=== PATIENT | female | born 1980 | race Caucasian/White ===

== ENCOUNTER → 2017-05-18 | Outpatient (CLI) | payer MEDICAID | LOC: FIMAGING 07:41 | PROVIDERS: ATTEND Internal Medicine | DX: K76.0 Fatty (change of) liver, not elsewhere classified (principal) ==

== ENCOUNTER → 2017-07-10 | Outpatient (CLI) | payer MEDICAID | LOC: BMCIMAGING 12:41 | PROVIDERS: ATTEND Otolaryngology | DX: E04.2 Nontoxic multinodular goiter (principal) | CPT/HCPCS: 76536-PO ==

== ENCOUNTER 2017-07-26 13:24 | Day surgery (SDC) | payer MEDICAID ==
[2017-07-26] MEDS ORDERED: NALOXONE HCL 0.4 MG/ML INJ ONE (14:51)
[2017-07-26] MEDS ORDERED: ONDANSETRON 4 MG/2 ML VIAL ONE (14:51)
[2017-07-26] MEDS ORDERED: MIDAZOLAM 2 MG/2 ML VIAL ONE (14:51)
[2017-07-26] MEDS ORDERED: FLUMAZENIL 0.5 MG/5 ML MDV IVP ONE (14:51)
[2017-07-26] MEDS ORDERED: fentaNYL 100 MCG/2 ML INJ ONE (14:52)
[2017-07-26] MEDS ORDERED: NS 1,000 ML IV SCH (15:00)
[2017-07-26] MEDS ORDERED: LIDOCAINE 1% 300 MG/30 ML SDV ONE (15:57)
[2017-07-26] MEDS ORDERED: TRIAMCINOLONE ACETONIDE 200 MG/5 ML MDV IM ONE (15:57)
[2017-07-26] MEDS ORDERED: IOPAMIDOL (ISOVUE-M 300) 15 ML VIAL ONE (15:58)
[2017-07-26] MEDS ORDERED: ONDANSETRON DISINTEGRATING 4 MG TAB PO PRN (16:22)
[2017-07-26] MEDS ORDERED: ONDANSETRON 4 MG/2 ML VIAL IVP PRN (16:23)
== END 2017-07-26 16:50 | disposition home or self-care (01) ==
LOC: FIMAGING 13:24
PROVIDERS: ATTEND Radiology Diagnostic Radiology
PROC: 3E0S3BZ Introduction of Anesthetic Agent into Epidural Space, Percutaneous Approach (ICD-10-PCS; principal; 2017-07-26 16:05)
PROC: B01B1ZZ Fluoroscopy of Spinal Cord using Low Osmolar Contrast (ICD-10-PCS; principal; 2017-07-26 16:05)
PROC: 3E0S33Z Introduction of Anti-inflammatory into Epidural Space, Percutaneous Approach (ICD-10-PCS; principal; 2017-07-26 16:05)
DX: M51.17 Intervertebral disc disorders with radiculopathy, lumbosacral region (principal); R73.03 Prediabetes; J45.909 Unspecified asthma, uncomplicated; I49.9 Cardiac arrhythmia, unspecified
CPT/HCPCS: J2250; J2310; J2405; J3010; J3301; Q9967

== ENCOUNTER 2017-08-20 19:43 | Emergency (ER) | payer MEDICAID ==
[2017-08-20 19:50] VITALS: RESP 18
--- NOTE | 2017-08-20 20:12 | EDPHY ---
H & P Time Seen by Provider: 08/20/17 19:55 HPI/ROS: CHIEF COMPLAINT: Left calf pain since today HISTORY OF PRESENT ILLNESS: 37-year-old female history of chronic lumbar radiculopathy, epidural lumbar spine injection 3 weeks ago which relieved her low back pain complaining of new isolated left calf pain. Not described as radicular. Atraumatic. No discoloration. She is able to bear weight. Pain not reproducible with palpation. No abdominal pain. No fever no chills. No incontinence or retention. No saddle anesthesia. REVIEW OF SYSTEMS: A ten point review of systems was performed and is negative with the exception of the items mentioned in the HPI PAST MEDICAL & SURGICAL HISTORY: Diabetes. Lumbar radiculopathy, L5-S1 herniation SOCIAL HISTORY:nonsmoker no drug use PHYSICAL EXAM (Prior to examination, patient consented to physical exam, hands were washed and my usual and customary physical exam procedures followed) 1) GENERAL: Well-developed, well-nourished, alert and oriented. Appears to be in no acute distress. 2) HEAD: Normocephalic, atraumatic 3) HEENT: Pupils equal, round, reactive to light bilaterally. Sclera anicteric. 4) NECK: Full range of motion, no meningeal signs. 5) LUNGS: Clear auscultation bilaterally, no wheezes, no rhonchi, no retractions. 6) HEART: Regular rate and rhythm, no murmur, no heave, no gallop. 7) ABDOMEN: No guarding, no rebound, no focal tenderness, negative McBurney's,, 8) MUSCULOSKELETAL: Moving all extremities, no focal areas of tenderness, no obvious trauma. No peripheral edema or discoloration. The left calf is soft, soft compartments, DP PT pulses present and brisk. Negative Homans no palpable cord. Normal color normal temperature distally. 9) BACK: No CVA tenderness, no midline vertebral tenderness, no fluctuance, no step-off, no obvious trauma, no visual or palpable abnormality. patella and Achilles reflexes intact to bilateral strength 5/5 10) SKIN: No rash, no petechiae. 11) Psychiatric: Patient is oriented X 3, there is no agitation. DIFFERENTIAL DIAGNOSIS: in no particular include but limited to compartment syndrome, lumbar radiculopathy, DVT Smoking Status: Never smoked Constitutional: Initial Vital Signs Temperature (C) 36.9 C 08/20/17 19:48 Heart Rate 110 H 08/20/17 19:48 Respiratory Rate 18 08/20/17 19:48 Blood Pressure 158/89 H 08/20/17 19:48 O2 Sat (%) 98 08/20/17 19:48 O2 Delivery Mode Room Air Allergies/Adverse Reactions: corn Allergy (Verified 06/27/17 17:58) doxycycline Allergy (Verified 03/12/16 21:32) morphine Allergy (Verified 08/20/17 19:47) mushroom Allergy (Verified 06/27/17 17:58) pseudoephedrine HCl [From Sudafed] Allergy (Verified 03/12/16 21:32) Home Medications: Medication Instructions Recorded Metoprolol Tartrate 25 mg PO BID 01/08/15 Nexium tab PO DAILY 01/08/15 Albuterol Sulfate [Albuterol 1 - 2 puffs IH Q4H PRN #1 mdi 07/19/15 Inhaler Hfa] Metformin HCl 250 mg PO DAILY 03/12/16 Probiotic cap PO DAILY 06/27/17 Vitamin D3 cap PO DAILY 06/27/17 Gabapentin [Neurontin 300 MG (*)] 300 mg PO HS #15 cap 08/20/17 MDM/Departure - MDM Imaging Results: Imaging Impressions Extremity Venous Study 08/20/17 20:09 Impression: No evidence of deep vein thrombosis in the left lower extremity. Results called to ROSAURA Granado Images reviewed myself ED Course/Re-evaluation: 8:12 p.m.: Care of patient under supervision of secondary supervising physician Dr Brasher . Offered analgesia which she declines 9:12 p.m.: Re-evaluation, discussed her imaging results negative for DVT. Doubt compartment syndrome. Doubt fracture in absence of trauma or underlying osseous discomfort. Discussed possibility of neuropathic pain. Today is Monday. She has an appointment with a auricular detoxification specialist in [place] tomorrow. I recommend she keep this appointment. We discussed possibly starting gabapentin however we agreed that she will talk to her spine surgeon 1st. Will send her home with take-home pack of [place] and usual and customary opiate precautions instructions. She feels comfortable with this plan. Lower index of suspicion for cauda equina, epidural abscess, epidural hematoma, lumbar myositis, diskitis, as the patient is neurologically intact in the lower extremities, has patella and Achilles reflexes intact and equal bilaterally, has no neurologic deficits, no incontinence, no retention, no midline pain, no fluctuance, afebrile, no flulike symptoms. - Depart Disposition: Home, Routine, Self-Care Clinical Impression: Radiculopathy with lower extremity symptoms Condition: Good Instructions: Hydrocodone/Acetaminophen (By mouth), Lumbar Radiculopathy (ED) Additional Instructions: Seek medical attention if you develop new or worsening pain, if you develop bladder or bowel dysfunction, numbness around your perineum, foot drop, or any other symptoms that concern you. Prescriptions: Gabapentin [Neurontin 300 MG (*)] 300 mg PO HS #15 cap Referrals: Keep, your spine surgeon appointment tomorrow [Other] - As per Instructions
[2017-08-20] MEDS ORDERED: HYDROCOD/APAP 5/325 PREPACK#6 BTL TAKEHOME ONE (21:17)
[2017-08-20] MEDS ORDERED: HYDROCODONE/APAP 5/325 TAB PO ONE (21:28)
[2017-08-20] MEDS ORDERED: HYDROCODONE/APAP 5/325 TAB ONE (21:29)
[2017-08-20 21:45] VITALS: BP 109/77; PULSE 92; TEMP 99.1; O2SAT 99
== END 2017-08-20 21:47 | disposition home or self-care (01) ==
DX: M54.10 Radiculopathy, site unspecified (principal); E11.9 Type 2 diabetes mellitus without complications; Z79.84 Long term (current) use of oral hypoglycemic drugs

== ENCOUNTER → 2018-04-17 | Outpatient (CLI) | payer MEDICAID | LOC: FIMAGING 19:33 | PROVIDERS: ATTEND Physician Assistant Medical | DX: G43.719 Chronic migraine without aura, intractable, without status migrainosus (principal) ==

== ENCOUNTER → 2018-08-07 | Outpatient (CLI) | payer MEDICAID | LOC: FIMAGING 13:30 | PROVIDERS: ATTEND Nurse Practitioner Adult Health | DX: M79.621 Pain in right upper arm (principal) ==

== ENCOUNTER → 2019-02-07 | Outpatient (CLI) | payer OTHER | LOC: FIMAGING 08:47 | PROVIDERS: ATTEND Internal Medicine | DX: R10.11 Right upper quadrant pain (principal); K76.0 Fatty (change of) liver, not elsewhere classified ==